=== PATIENT | female | born 1995 | race Caucasian/White ===

== ENCOUNTER 2016-11-15 06:01 | Emergency (ER) | payer OTHER ==
[~2016-11-15] VITALS: Ht 152.4 cm; Wt 54.0 kg
[~2016-11-15 06:01] MED LIST: DIPH50CA38
[2016-11-15] MEDS ORDERED: ACETAMINOPHEN 325MG TABLET PO STA (07:21)
[2016-11-15] MEDS ORDERED: MAGNESIUM/ALUMINUM HYDROXIDE/SIMETHICONE 30ML UDC PO STA (07:21)
[2016-11-15 07:40] LABS: PROTHROMBIN TIME 10.8 sec
[2016-11-15 07:47] LABS: ALANINE AMINOTRANSFERASE 126 IU/L (13-61); ALBUMIN 3.7 g/dL (3.4-5.0); ANION GAP 14; BASOPHILS % 0.4 % (0.0-2.0); CALCIUM 8.6 mg/dL (8.5-10.1); CARBON DIOXIDE 23 mEq/L (21-32); CHLORIDE 111 mEq/L (98-107); DIFFERENTIAL COMMENT 0; EOSINOPHILS % 2.2 % (0.0-5.0); HEMATOCRIT. 35.5 % (36.0-48.0); HEMOGLOBIN. 11.5 g/dL (12.0-16.0); INDEX HEMOLYSI 1 (1-3); INDEX ICTERIC 1 (1-4); INDEX LIPEMIC 1 (1-3); LIPASE 142 IU/L (73-393); LYMPHOCYTES % 26.5 % (20.0-50.0); MEAN CORPUSCULAR HEMOGLOBIN 24.5 pg (28.0-32.0); MEAN CORPUSCULAR HGB CONC 32.4 g/dL (31.0-37.0); MEAN CORPUSCULAR VOLUME 75.6 fL (81.0-99.0); MEAN PLATELET VOLUME 9.2 fl (7.4-10.4); MONOCYTES % 5.1 % (2.0-8.0); NEUTROPHILS % 65.8 % (40.0-76.0); PLATELET 208 x1000/uL (130-400); RED BLOOD CELL COUNT 4.69 mill/uL (4.2-5.4); RED CELL DISTRIBUTION WIDTH 17.7 % (11.6-14.6); UREA NITROGEN BLOOD 13 mg/dL (7-21); WHITE BLOOD COUNT 7.1 x1000/uL (4.5-11.0); eGFR > 60 mL/min (>60)
[2016-11-15 07:49] LABS: HCG SCREEN NEGATIVE
[2016-11-15 08:00] LABS: GLUCOSE URINE NEGATIVE (NEGATIVE); KETONES URINE NEGATIVE (NEGATIVE); LEUKOCYTE ESTERASE URINE 1+ (NEGATIVE); NITRITE URINE NEGATIVE (NEGATIVE); OCCULT BLOOD URINE NEGATIVE (NEGATIVE); PH URINE 5.5 (4.5-8.0); PROTEIN URINE NEGATIVE (NEGATIVE); SPECIFIC GRAVITY URINE 1.027 (1.005-1.030); UROBILINOGEN URINE 0.2 E.U./dL (0.2-1.0)
[2016-11-15 08:11] LABS: *AMPHETAMINES SCREEN URINE NEGATIVE (NEGATIVE); *BARBITURATES SCREEN URINE NEGATIVE (NEGATIVE); *BENZODIAZEPINES SCREEN URINE NEGATIVE (NEGATIVE); *COCAINE SCREEN URINE NEGATIVE (NEGATIVE); CANNABINOID URINE SCREEN NEGATIVE (NEGATIVE); ECSTASY MDMA SCREEN URINE NEGATIVE (NEGATIVE); METHADONE URINE SCREEN NEGATIVE (NEGATIVE); OPIATES URINE SCREEN NEGATIVE (NEGATIVE); PHENCYCLIDINE URINE SCREEN NEGATIVE (NEGATIVE)
[2016-11-15 08:12] LABS: CLARITY URINE SL HAZY (CLEAR); COLOR URINE YELLOW (YELLOW)
[2016-11-15 08:26] LABS: RBC URINE NONE SEEN /hpf (0-2); SQUAMOUS EPITHELIAL CELL URINE 3+ /lpf (RARE/1+)
[2016-11-15 08:27] LABS: BACTERIA URINE 2+; CALCIUM OXALATE CRYSTALS URINE 2+ /lpf
[2016-11-15 10:41] VITALS: BP 115/68
== END 2016-11-15 10:51 | disposition home or self-care (01) ==
LOC: ER 07:36
DX: R10.9 Unspecified abdominal pain (principal); Z79.899 Other long term (current) drug therapy
CPT/HCPCS: 36415; 71010; 76705; 80053; 80305; 81001; 83690; 84703; 85025; 85610; 99285

== ENCOUNTER 2018-06-03 06:46 | Emergency (ER) | payer MEDICAID, OTHER ==
[~2018-06-03] VITALS: Ht 165.1 cm; Wt 64.0 kg
[2018-06-03 07:28] VITALS: BP 113/67
== END 2018-06-03 09:57 | disposition left against medical advice (07) ==
LOC: ER 06:46
DX: O26.891 Other specified pregnancy related conditions, first trimester (principal); Z3A.11 11 weeks gestation of pregnancy; Z53.21 Procedure and treatment not carried out due to patient leaving prior to being seen by health care provider

== ENCOUNTER 2018-06-04 12:12 | Emergency (ER) | payer MEDICAID ==
[~2018-06-04] VITALS: Ht 157.5 cm; Wt 63.0 kg
[2018-06-04] MEDS ORDERED: ACETAMINOPHEN 325MG TABLET PO PRN (14:30)
[2018-06-04 16:18] LABS: BASOPHILS % 0.4 % (0.0-2.0); EOSINOPHILS % 2.4 % (0.0-5.0); HEMATOCRIT. 37.7 % (36.0-48.0); HEMOGLOBIN. 12.7 g/dL (12.0-16.0); LYMPHOCYTES % 30.3 % (20.0-50.0); MEAN CORPUSCULAR HEMOGLOBIN 28.3 pg (28.0-32.0); MEAN CORPUSCULAR VOLUME 83.8 fL (81.0-99.0); MONOCYTES % 4.4 % (2.0-8.0); NEUTROPHILS % 62.5 % (40.0-76.0); PLATELET 230 x1000/uL (130-400)
[2018-06-04 16:22] LABS: CHLORIDE 106 mEq/L (98-107)
[2018-06-04 16:48] LABS: B-HCG QUANTITATIVE 4517 mIU/mL (<3)
[2018-06-04 16:57] LABS: CLARITY URINE CLEAR (CLEAR); COLOR URINE YELLOW (YELLOW); KETONES URINE NEGATIVE (NEGATIVE); LEUKOCYTE ESTERASE URINE NEGATIVE (NEGATIVE); NITRITE URINE NEGATIVE (NEGATIVE); OCCULT BLOOD URINE NEGATIVE (NEGATIVE); PH URINE 5.5 (4.5-8.0); PROTEIN URINE NEGATIVE (NEGATIVE); SPECIFIC GRAVITY URINE 1.022 (1.005-1.030); UROBILINOGEN URINE 0.2 E.U./dL (0.2-1.0)
[2018-06-04 17:50] VITALS: BP 105/65
== END 2018-06-04 17:52 | disposition home or self-care (01) ==
LOC: ER 12:12
DX: O26.891 Other specified pregnancy related conditions, first trimester (principal); O02.1 Missed abortion; F32.9 Major depressive disorder, single episode, unspecified; F41.9 Anxiety disorder, unspecified; Z3A.01 Less than 8 weeks gestation of pregnancy
CPT/HCPCS: 36415; 76801; 81025; 84702; 86850; 86900; 99284

== ENCOUNTER 2018-06-10 16:17 | Emergency (ER) | payer MEDICAID ==
[~2018-06-10] VITALS: Ht 162.6 cm; Wt 60.0 kg
[2018-06-10 16:28] VITALS: BP 118/72
== END 2018-06-10 23:08 | disposition left against medical advice (07) ==
LOC: ER 16:17
DX: R10.9 Unspecified abdominal pain (principal); Z53.21 Procedure and treatment not carried out due to patient leaving prior to being seen by health care provider

== ENCOUNTER 2024-05-05 07:38 | Emergency (ER) | payer MEDICAID, OTHER ==
[~2024-05-05] VITALS: Ht 167.6 cm; Wt 69.0 kg
[2024-05-05 07:48] VITALS: O2SAT 99
[2024-05-05] MEDS: METOCLOPRAMIDE HCL 10MG/2ML VIAL IV ONE (08:45)
[2024-05-05 08:50] LABS: BASOPHILS % 0.4 % (0.0-2.0); EOSINOPHILS % 1.2 % (0.0-5.0); HEMATOCRIT. 38.1 % (36.0-48.0); HEMOGLOBIN. 12.5 g/dL (12.0-16.0); LYMPHOCYTES % 24.8 % (20.0-50.0); MEAN CORPUSCULAR HEMOGLOBIN 27.8 pg (28.0-32.0); MEAN CORPUSCULAR HGB CONC 32.7 g/dL (31.0-37.0); MEAN CORPUSCULAR VOLUME 85.1 fL (81.0-99.0); MEAN PLATELET VOLUME 9.4 fl (7.4-10.4); MONOCYTES % 4.3 % (2.0-8.0); NEUTROPHILS % 69.3 % (40.0-76.0); PLATELET 219 x1000/uL (130-400); RED BLOOD CELL COUNT 4.48 mill/uL (4.2-5.4); WHITE BLOOD COUNT 7.3 x1000/uL (4.5-11.0)
[2024-05-05 09:04] LABS: CHLORIDE 110 mEq/L (98-107); POTASSIUM 3.9 mEq/L (3.5-5.1); SODIUM 143 mEq/L (136-145)
[2024-05-05 09:05] LABS: CALCIUM 9.7 mg/dL (8.7-10.4); CARBON DIOXIDE 27 mEq/L (21-32)
[2024-05-05 09:10] LABS: CREATININE 0.7 mg/dL (0.6-1.0); GLUCOSE 96 mg/dL (70-105); UREA NITROGEN BLOOD 9 mg/dL (9-23)
[2024-05-05 09:20] LABS: HCG SCREEN NEGATIVE
[2024-05-05] MEDS: LACTATED RINGERS 1,000 ML IV SCH (10:23)
[2024-05-05] MEDS: ACETAMINOPHEN 325MG TABLET PO ONE (10:38)
[2024-05-05 11:04] VITALS: BP 100/60; PULSE 78; RESP 18; TEMP 36.83628; O2SAT 99
== END 2024-05-05 11:24 | disposition home or self-care (01) ==
LOC: ER 07:55
DX: R51.9 Headache, unspecified (principal); F41.9 Anxiety disorder, unspecified; F32.A Depression, unspecified; Z98.890 Other specified postprocedural states
CPT/HCPCS: 80048; 84703; 85025; 36415; 70450; 96361; 96374; 99285; J2765; Z7610 ×3